=== PATIENT | female | born 1975 | race Asian ===

== ENCOUNTER 2017-04-27 01:00 | Inpatient (IN) | payer SELFPAY ==
[~2017-04-27] VITALS: Ht 163 cm; Wt 68.9 kg
[2017-04-27] MEDS ORDERED: PREN-546 PO (02:00)
[2017-04-27] MEDS ORDERED: IBUPROFEN 800 MG TAB PO PRN (02:20)
[2017-04-27] MEDS ORDERED: LACTATED RINGERS 1,000 ML IV SCH (02:20)
[2017-04-27 02:32] LABS: BASOPHILS # (AUTO) 0.1 K/uL (0.00-0.22); BASOPHILS % (AUTO) 1.6 % (0.0-2.0); EOSINOPHILS # (AUTO) 0.1 K/uL (0-0.4); EOSINOPHILS % (AUTO) 1.7 % (0.0-4.0); HEMOGLOBIN 12.6 g/dL (12.0-16.0); LYMPHOCYTES # (AUTO) 1.3 K/uL (2.5-16.5); MEAN CORPUSCULAR HEMOGLOBIN 31 pg (27-31); MEAN CORPUSCULAR HGB CONC 32 g/dL (33-37); MEAN CORPUSCULAR VOLUME 97 fL (80-94); MONOCYTES # (AUTO) 0.8 K/uL (0.8-1.0); MONOCYTES % (AUTO) 9.8 % (1.7-9.3); NEUTROPHILS # (AUTO) 5.5 K/uL (1.8-7.7); NEUTROPHILS % (AUTO) 70.9 % (42.2-75.2); PLATELET COUNT (AUTO) 168 K/uL (140-450); RED BLOOD CELL COUNT(AUTO) 4.01 MIL/uL (4.20-5.40); WHITE BLOOD COUNT (AUTO) 7.8 K/uL (4.8-10.8)
[2017-04-27 02:42] LABS: ALBUMIN 2.5 g/dL (3.4-5.0); ANION GAP 15.4 (8-16); CARBON DIOXIDE 19.5 mmol/L (21-32); CREATININE 0.4 mg/dL (0.6-1.3); POTASSIUM 3.9 mmol/L (3.5-5.1); TOTAL BILIRUBIN 0.4 mg/dL (0.0-1.0)
[2017-04-27 05:22] VITALS: BP 91/50
[2017-04-27] MEDS ORDERED: ceFAZolin 1,000 MG VIAL ONE (06:07)
[2017-04-27] MEDS ORDERED: ceFAZolin 1,000 MG VIAL IVP ONE (06:42)
[2017-04-27] MEDS ORDERED: METHYLERGONOVINE 0.2 MG/ML AMP ONE (06:43)
[2017-04-27] MEDS ORDERED: OXYTOCIN 10 UNITS/ML VIAL ONE (06:43)
[2017-04-27] MEDS ORDERED: MORPHINE PRES FREE 10 MG/10 ML AMP IV ONE (06:45)
[2017-04-27] MEDS ORDERED: MIDAZOLAM 2 MG/2 ML VIAL ONE (06:45)
[2017-04-27] MEDS ORDERED: OXYTOCIN 20 UNITS/LR PREMIX 1,000 ML IV SCH ×2 (07:02→08:20)
[2017-04-27] MEDS ORDERED: NALOXONE 0.4 MG/ML VIAL IVP PRN ×3 (07:05)
[2017-04-27] MEDS ORDERED: MEPERIDINE 25 MG/ML SYR IVP PRN (07:05)
[2017-04-27] MEDS ORDERED: HYDROmorphone 1 MG/ML AMP IVP PRN (07:05)
[2017-04-27] MEDS ORDERED: NALBUPHINE 10 MG/ML AMP IVP PRN (07:05)
[2017-04-27] MEDS ORDERED: diphenhydrAMINE 50 MG/ML VIAL IVP PRN ×2 (07:05)
[2017-04-27] MEDS ORDERED: ONDANSETRON 4 MG/2 ML VIAL IVP PRN ×2 (07:05)
[2017-04-27] MEDS ORDERED: oxyCODONE/APAP 5/325 MG 1 TAB TAB PO PRN (07:20)
[2017-04-27] MEDS ORDERED: TRIMETHOBENZAMIDE 200 MG/2 ML SYR IM PRN (07:20)
[2017-04-27] MEDS ORDERED: METHYLERGONOVINE 0.2 MG/ML AMP IM PRN (07:20)
[2017-04-27] MEDS ORDERED: MEASLES, MUMPS, AND RUBELLA 1 VIAL SQVAC PRN (07:20)
[2017-04-27] MEDS ORDERED: SIMETHICONE 80 MG TAB.CHEW PO PRN (07:20)
[2017-04-27] MEDS ORDERED: TEMAZEPAM 15 MG CAP PO PRN (07:20)
[2017-04-27] MEDS ORDERED: ONDANSETRON 4 MG/2 ML VIAL ONE (08:20)
[2017-04-27] MEDS ORDERED: OXYTOCIN 20 UNITS/LR PREMIX 1,000 ML IV ONE (08:20)
[2017-04-27 11:09] LABS: APPEARANCE,URINE CLEAR (CLEAR); BILIRUBIN,URINE NEGATIVE (NEGATIVE); BLOOD, URINE NEGATIVE (NEGATIVE); COLOR,URINE YELLOW (YELLOW); LEUKOCYTE ESTERASE ,URINE NEGATIVE (NEGATIVE); NITRITE, URINE NEGATIVE (NEGATIVE); UGLUCOSE TRACE (NEGATIVE)
[2017-04-27 11:10] LABS: RBC,URINE 0-5 (RARE) /HPF (0-5)
[2017-04-27 11:11] LABS: WBC,URINE 0-5 (RARE) /HPF (0-5)
--- NOTE | 2017-04-27 11:32 | NUR ---
PATIENT HAS BEEN SCREENED AND CATEGORIZED LOW NUTRITION RISK. PATIENT WILL BE SEEN WITHIN 7 DAYS OF ADMISSION. 05/03/[address]
[2017-04-27] MEDS: KETOROLAC 30 MG/ML VIAL IM/IVP SCH ×2 (12:23→18:09)
[2017-04-27] MEDS: OXYTOCIN 20 UNITS/LR PREMIX 1,000 ML IV SCH (16:46)
[2017-04-27] MEDS: DOCUSATE SOD/SENNA 50/8.6 MG 1 TAB PO SCH (21:00)
[2017-04-28] MEDS: KETOROLAC 30 MG/ML VIAL IM/IVP SCH
[2017-04-28] MEDS: OXYTOCIN 20 UNITS/LR PREMIX 1,000 ML IV SCH (00:35)
[2017-04-28 05:53] LABS: BASOPHILS # (AUTO) 0.1 K/uL (0.00-0.22); BASOPHILS % (AUTO) 0.6 % (0.0-2.0); EOSINOPHILS # (AUTO) 0.2 K/uL (0-0.4); EOSINOPHILS % (AUTO) 1.4 % (0.0-4.0); HEMATOCRIT 33.6 % (36-48); HEMOGLOBIN 11.3 g/dL (12.0-16.0); LYMPHOCYTES # (AUTO) 1.3 K/uL (2.5-16.5); MEAN CORPUSCULAR HEMOGLOBIN 32 pg (27-31); MEAN CORPUSCULAR HGB CONC 34 g/dL (33-37); MEAN CORPUSCULAR VOLUME 96 fL (80-94); MONOCYTES # (AUTO) 0.8 K/uL (0.8-1.0); MONOCYTES % (AUTO) 7.3 % (1.7-9.3); NEUTROPHILS % (AUTO) 79.7 % (42.2-75.2); PLATELET COUNT (AUTO) 144 K/uL (140-450); RED BLOOD CELL COUNT(AUTO) 3.52 MIL/uL (4.20-5.40); RED CELL DISTRIBUTION WIDTH 16.3 % (11.6-13.7); WHITE BLOOD COUNT (AUTO) 11.4 K/uL (4.8-10.8)
[2017-04-28 08:03] LABS: RAPID PLASMA REAGIN NON-REACTIVE (Non Reactiv)
[2017-04-28] MEDS: HYDROcodone/APAP 5/325 MG 1 TAB TAB PO PRN ×2 (09:14→22:53)
[2017-04-28] MEDS: IBUPROFEN 800 MG TAB PO PRN (16:00)
[2017-04-28] MEDS: DOCUSATE SOD/SENNA 50/8.6 MG 1 TAB PO SCH (21:10)
[2017-04-29] MEDS: IBUPROFEN 800 MG TAB PO PRN ×2 (14:24→21:03)
[2017-04-29] MEDS: DOCUSATE SOD/SENNA 50/8.6 MG 1 TAB PO SCH (21:00)
[2017-04-30] MEDS: DOCUSATE SOD/SENNA 50/8.6 MG 1 TAB PO SCH ×2 (21:25→21:26)
[2017-05-01] MEDS ORDERED: IBUP-2213 PO (08:56)
== END 2017-05-01 13:20 | disposition home or self-care (01) | DRG 766 ==
LOC: MLD 01:00 → MFCC 08:55
PROVIDERS: ADMIT Obstetrics & Gynecology; ATTEND Obstetrics & Gynecology
PROC: 10D00Z1 Extraction of Products of Conception, Low, Open Approach (ICD-10-PCS; principal; 2017-04-27 06:35)
DX: O34.211 Maternal care for low transverse scar from previous cesarean delivery (principal); Z37.0 Single live birth; Z3A.39 39 weeks gestation of pregnancy
CPT/HCPCS: 36415; 51702; 80053; 81001; 85025; 86592; 86886; 86900; 86901; 90715; J0690; J1885; J2210; J2250; J2270; J2405; J2590; J7060; J7120